=== PATIENT | female | born 1995 | race Two or more races ===

== ENCOUNTER 2019-01-03 05:43 | Emergency (ER) | payer SELFPAY ==
[~2019-01-03] VITALS: Ht 154.9 cm; Wt 64.0 kg
[2019-01-03] MEDS ORDERED: IBUPROFEN 600MG TABLET PO STA (07:39)
[2019-01-03 09:31] VITALS: BP 120/85
== END 2019-01-03 09:31 | disposition home or self-care (01) ==
LOC: ER 05:43
DX: S16.1XXA Strain of muscle, fascia and tendon at neck level, initial encounter (principal); M79.641 Pain in right hand; V43.52XA Car driver injured in collision with other type car in traffic accident, initial encounter; Y93.89 Activity, other specified; Y92.488 Other paved roadways as the place of occurrence of the external cause
CPT/HCPCS: 72100; 73130; 81025; 99284